=== PATIENT | female | born 1945 | race Caucasian/White ===

== ENCOUNTER → 2016-11-14 | Outpatient (CLI) | payer MEDICARE, SELFPAY | LOC: KOH-I 12:53 | DX: J32.9 Chronic sinusitis, unspecified (principal); J34.2 Deviated nasal septum | CPT/HCPCS: 70486 ==

== ENCOUNTER → 2017-02-03 | Outpatient (CLI) | payer MEDICARE, SELFPAY ==
[2017-02-03 10:47] LABS: BUN/CREATININE RATIO 26 (0-10)
== END ==
LOC: LAB 09:58
PROVIDERS: Family Medicine
DX: E11.9 Type 2 diabetes mellitus without complications (principal); E53.8 Deficiency of other specified B group vitamins
CPT/HCPCS: 36415; 80053; 82043; 82570; 82607; 83036

== ENCOUNTER → 2020-08-23 | Outpatient (CLI) | payer MEDICARE, OTHER ==
[~2020-08-23] MED LIST: BYSTOLIC5 MG PO; ECOTRIN81 MG PO; FLAGYL500 MG PO; GLUCOPHAGE1000 MG PO; LEVOCETIRIZINE D5 MG PO; NEURONTIN 300300 MG PO; PROTONIX40 MG PO; SYNTHROID25 MCG PO; TRADJENTA5 MG PO; VALSARTAN-HCTZ1 EAC4 PO; VITAMIN B-122000 MC1 PO; VITAMIN C1000 MG PO; VITAMIN D31000 UNIT PO
[2020-08-23 16:23] LABS: BUN/CREATININE RATIO 28 (0-10)
== END ==
LOC: LAB 14:17
PROVIDERS: Family Medicine
DX: I10 Essential (primary) hypertension (principal)
CPT/HCPCS: 36415; 80048

== ENCOUNTER → 2021-01-29 | Outpatient (CLI) | payer MEDICARE ==
[2021-01-29 11:23] LABS: HEMOGLOBIN 13.3 gm/dl (12.3-15.3); RED BLOOD COUNT 4.25 M/UL (4.00-5.10); WHITE BLOOD COUNT 7.3 K/UL (4.5-11.0)
[2021-01-29 11:52] LABS: BUN/CREATININE RATIO 22 (0-10)
[2021-01-30 10:14] LABS: CREATININE, URINE 164.8 mg/dL (Not Estab.)
== END ==
LOC: LAB 10:39
PROVIDERS: Family Medicine
DX: E11.9 Type 2 diabetes mellitus without complications (principal); E03.9 Hypothyroidism, unspecified; E55.9 Vitamin D deficiency, unspecified; E78.5 Hyperlipidemia, unspecified; E53.8 Deficiency of other specified B group vitamins
CPT/HCPCS: 80053; 80061; 82043; 82570; 82607; 83036; 83735; 84439; 84443; 85027

== ENCOUNTER → 2021-02-11 | Outpatient (CLI) | payer MEDICARE, SELFPAY | LOC: EXRD 10:23 | DX: M54.9 Dorsalgia, unspecified (principal); M47.814 Spondylosis without myelopathy or radiculopathy, thoracic region | CPT/HCPCS: 72070 ==

== ENCOUNTER → 2021-03-21 | Outpatient (CLI) | payer MEDICARE, OTHER | LOC: MAMO 08:30 | DX: Z12.31 Encounter for screening mammogram for malignant neoplasm of breast (principal); Z80.3 Family history of malignant neoplasm of breast | CPT/HCPCS: 77063; 77067 ==

== ENCOUNTER 2021-07-13 10:59 | Emergency (ER) | payer MEDICARE ==
[2021-07-13 12:07] LABS: HEMOGLOBIN 13.5 gm/dl (12.3-15.3); RED BLOOD COUNT 4.4 M/UL (4.00-5.10)
[2021-07-13 12:32] LABS: BUN/CREATININE RATIO 31 (0-10)
== END 2021-07-13 13:51 | disposition home or self-care (01) ==
LOC: ER1 10:59
PROVIDERS: Nurse Practitioner
DX: R51.9 Headache, unspecified (principal); E11.9 Type 2 diabetes mellitus without complications; Z88.5 Allergy status to narcotic agent; Z88.8 Allergy status to other drugs, medicaments and biological substances; Z79.82 Long term (current) use of aspirin; W01.10XA Fall on same level from slipping, tripping and stumbling with subsequent striking against unspecified object, initial encounter; Y92.009 Unspecified place in unspecified non-institutional (private) residence as the place of occurrence of the external cause
CPT/HCPCS: 70450; 72125; 80053; 81001; 82550; 82553; 85025; 85610; 85652; 85730; 96374; 99284; J1170

== ENCOUNTER → 2021-07-18 | Outpatient (CLI) | payer MEDICARE, SELFPAY ==
[2021-07-18 10:46] LABS: HEMOGLOBIN 13.8 gm/dl (12.3-15.3); RED BLOOD COUNT 4.38 M/UL (4.00-5.10); WHITE BLOOD COUNT 8.7 K/UL (4.5-11.0)
[2021-07-18 12:15] LABS: BUN/CREATININE RATIO 25 (0-10)
[2021-07-19 11:13] LABS: CREATININE, URINE 273.7 mg/dL (Not Estab.)
== END ==
LOC: LAB 10:18
PROVIDERS: Family Medicine
DX: E11.9 Type 2 diabetes mellitus without complications (principal); E78.5 Hyperlipidemia, unspecified; E03.9 Hypothyroidism, unspecified; E55.9 Vitamin D deficiency, unspecified; E53.8 Deficiency of other specified B group vitamins; I10 Essential (primary) hypertension
CPT/HCPCS: 36415; 80053; 80061; 82043; 82570; 82607; 83735; 84439; 84443; 85027

== ENCOUNTER → 2021-10-21 | Outpatient (CLI) | payer MEDICARE | LOC: EXRD 14:21 | DX: M54.6 Pain in thoracic spine (principal); M25.512 Pain in left shoulder | CPT/HCPCS: 72070; 73030 ==

== ENCOUNTER → 2021-11-11 | Outpatient (CLI) | payer MEDICARE | LOC: EXRD 11:30 | DX: S99.921A Unspecified injury of right foot, initial encounter (principal) | CPT/HCPCS: 73630 ==

== ENCOUNTER → 2022-01-16 | Outpatient (CLI) | payer MEDICARE | LOC: HEART 5 08:06 | DX: R07.9 Chest pain, unspecified (principal); R06.02 Shortness of breath; I51.7 Cardiomegaly | CPT/HCPCS: 78452; 93306; A9502; J2785 ==

== ENCOUNTER → 2022-02-10 | Outpatient (CLI) | payer MEDICARE | LOC: EXRD 10:51 | DX: M54.50 Low back pain, unspecified (principal); N28.1 Cyst of kidney, acquired; M47.816 Spondylosis without myelopathy or radiculopathy, lumbar region | CPT/HCPCS: 72110 ==

== ENCOUNTER → 2022-03-10 | Outpatient (CLI) | payer MEDICARE | LOC: US 10:21 | DX: N28.1 Cyst of kidney, acquired (principal) ==

== ENCOUNTER → 2022-04-29 | Outpatient (CLI) | payer MEDICARE, OTHER ==
[~2022-04-29] MED LIST changes: +DIGESTIVE ENZYMES PO; +ESTRACE42.5 GM VG; +LOSARTAN-HCTZ1 EACH PO; +MACROBID 100 M100 MG PO; +OXYBUTYNIN CHLO10 MG PO; +SYNTHROID 50 M50 MCG PO; -SYNTHROID25 MCG PO; +TRULICITY0.75 MG/0. SQ; -VALSARTAN-HCTZ1 EAC4 PO; -VITAMIN C1000 MG PO; +VITAMIN C500 M4 PO
[2022-04-29 11:45] LABS: HEMOGLOBIN 13.6 gm/dl (12.3-15.3); RED BLOOD COUNT 4.47 M/UL (4.00-5.10); WHITE BLOOD COUNT 8.4 K/UL (4.5-11.0)
[2022-04-29 12:07] LABS: BUN/CREATININE RATIO 25 (0-10)
== END ==
LOC: EDSTATUS 10:00 → OPSV2 10:00
PROVIDERS: Orthopaedic Surgery
DX: Z01.818 Encounter for other preprocedural examination (principal); M17.11 Unilateral primary osteoarthritis, right knee; R94.31 Abnormal electrocardiogram [ECG] [EKG]
CPT/HCPCS: 71046; 80048; 83036; 85025; 85610; 85730; 93005